=== PATIENT | male | born 1985 | race Caucasian/White ===

== ENCOUNTER → 2016-04-12 | Outpatient (CLI) | payer MEDICARE, MEDICAID ==
[~2016-04-12] MED LIST: /CELE20CA OR; ATEN50TA2 OR; PREG50CA OR; SAVELLA; VICO5TAB OR
--- NOTE | 2016-04-15 08:31 | REP ---
MRI LUMBAR SPINE WITHOUT CONTRAST: HISTORY: Back pain. COMPARISON: 06/16/2008. Decreased signal intensity on T2-weighted images is present in the L4-5 and L5-S1 intervertebral discs. The discs are decreased in height. These findings are consistent with disc degeneration. There is no disc bulge or herniation at the L1-2 and L2-3 levels. The nerves exit the neural foraminal without compression. A diffuse disc bulge is present at the L3-4 level. There is minimal compression of the thecal sac. The L3 nerves exit the neural foramina without compression. A diffuse disc bulge and small central disc protrusion are present at the L4-5 level. There is mild compression of the thecal sac. There is hypertrophy of the posterior articulating facets. The L4 nerves exit the neural foramina without compression. A diffuse disc bulge and small disc protrusion central and eccentric to the left are present at the L5-S1 level. The disc protrusion is increased in size. There is minimal compression of the thecal sac and S1 nerves greater on the left than on the right as they exit the thecal sac. There is hypertrophy of the posterior articulating facets. The L5 nerves exit the neural foramina without compression. The conus medullaris is normal in appearance terminating at the level of the L1-2 intervertebral disc. Normal signal intensity is present in the lumbar vertebral bodies. IMPRESSION: 1. Diffuse disc bulge at the L3-4 level with minimal thecal sac compression. 2. Diffuse disc bulge and small central disc protrusion at the L4-5 level with mild thecal sac compression. 3. Diffuse disc bulge and small disc protrusion at the L5-S1 level with minimal compression at the thecal sac and S1 nerves, greater on the left than on the right as they exit the thecal sac. The disc protrusion is increased in size. There is no other significant change. Signed by Tristan Marshall MD 04/15/2016 08:37 A
== END ==
LOC: M RAD 15:07
PROVIDERS: ATTEND Internal Medicine
DX: M54.5 Low back pain (principal)